=== PATIENT | male | born 1965 | race Two or more races ===

== ENCOUNTER 2018-10-22 15:34 | Emergency (ER) | payer MEDICAID, OTHER ==
[~2018-10-22] VITALS: Ht 167.6 cm; Wt 59.0 kg
[2018-10-22 16:01] VITALS: BP 128/84
[2018-10-22 17:31] LABS: Basophils # (auto) 0 uL; Basophils % (auto) 0.1 % (0.0-2.0); Eosinophils # (auto) 0 uL; Eosinophils % (auto) 0.1 % (0.0-7.0); Hematocrit 30.7 % (41.0-53.0); Hemoglobin 10.5 g/dL (13.5-17.5); Lymphocytes # (auto) 1.1 uL; Lymphocytes % (auto) 8.2 % (10.0-50.0); Mean Corpuscular Hemoglobin 33.7 pg (28.0-32.0); Mean Corpuscular Hgb Conc. 34.1 g/dL (32.0-36.0); Mean Corpuscular Volume 98.7 fL (80.0-100.0); Monocytes # (auto) 1.3 uL; Monocytes % (auto) 9.4 % (0.0-12.0); Neutrophils # (auto) 10.9 uL; Neutrophils % (auto) 82.2 % (37.0-80.0); Nucleated Red Blood Cells % 0.1 %; Platelet Count (auto) 325 10^3/uL (140-450); Red Blood Cells 3.11 10^6/uL (4.5-5.90); Red Cell Distribution Width 12.6 % (11.8-14.3); White Blood Cell 13.3 10^3/uL (4.4-10.8)
[2018-10-22 17:45] LABS: Alanine Aminotransferase 19 U/L (16-61); Albumin 3.3 g/dL (3.4-5.0); Anion Gap 9 (5-15); Aspartate Aminotransferase 21 U/L (15-37); BUN/Creatinine Ratio 16.5; Blood Urea Nitrogen 17 mg/dL (7-18); Calcium 8.5 mg/dL (8.5-10.1); Carbon Dioxide 21 mmol/L (21-32); Chloride 107 mmol/L (98-107); GFR African American 96 mL/min; GFR Non-African American 80 mL/min; Glucose 113 mg/dL (74-106); Potassium 3.1 mmol/L (3.5-5.1); Sodium 137 mmol/L (136-145)
[2018-10-22 17:50] LABS: Alkaline Phosphatase 73 U/L (45-117); Bilirubin, Total 0.3 mg/dL (0.2-1.0); Total Protein 7.9 g/dL (6.4-8.2)
[2018-10-22] MEDS ORDERED: cefTRIAXone SOD 1,000 MG VL IM ONE (18:00)
== END 2018-10-22 18:04 | disposition left against medical advice (07) ==
LOC: ER 15:42
DX: J18.9 Pneumonia, unspecified organism (principal); Z53.29 Procedure and treatment not carried out because of patient's decision for other reasons; V43.52XA Car driver injured in collision with other type car in traffic accident, initial encounter; Y93.89 Activity, other specified; Y99.8 Other external cause status; Y92.410 Unspecified street and highway as the place of occurrence of the external cause
CPT/HCPCS: 36415; 71046; 80053; 84484; 85025; 93005